=== PATIENT | female | born 1995 | race Caucasian/White ===

== ENCOUNTER 2021-09-11 12:35 | Outpatient (CLI) | payer BC, OTHER | END 2021-09-11 12:36 | disposition home or self-care (01) | LOC: MADRAD 12:35 | PROVIDERS: ATTEND Family Medicine | DX: S46.811A Strain of other muscles, fascia and tendons at shoulder and upper arm level, right arm, initial encounter (principal); M54.2 Cervicalgia | CPT/HCPCS: 72040 ==

== ENCOUNTER 2023-02-03 17:35 | Outpatient (CLI) | payer OTHER | END 2023-02-03 17:36 | disposition home or self-care (01) | LOC: MADRAD 17:35 | PROVIDERS: ATTEND Nurse Practitioner Family | DX: M53.3 Sacrococcygeal disorders, not elsewhere classified (principal) | CPT/HCPCS: 72220 ==